=== PATIENT | female | born 1985 | race Caucasian/White ===

== ENCOUNTER 2022-08-05 20:19 | Observation (INO) ==
[2022-08-05] MEDS ORDERED: KETOROLAC TROMETHAMINE 15 MG/ML VIAL IM STA (21:05)
[2022-08-05] MEDS ORDERED: ONDANSETRON 4 MG OD TAB PO STA (21:05)
[2022-08-05 21:25] LABS: Basophils # (auto) 0.03 K/uL (0-0.2); Basophils % (auto) 0.3 %; Eosinophils # (auto) 0.01 K/uL (0-0.50); Eosinophils % (auto) 0.1 %; Hematocrit (blood only) 36.4 % (34.1-44.9); Hemoglobin 12.5 g/dl (12.0-16.0); Immature Granulocytes # (auto) 0.04 K/uL (0.00-0.02); Immature Granulocytes % (auto) 0.4 %; Lymphocytes # (auto) 1.48 K/uL (1.2-3.4); Lymphocytes % (auto) 14.3 %; Mean Corpuscular Hemoglobin 28.8 pg (25.0-34.0); Mean Corpuscular Hgb Conc 34.3 g/dL (32.0-36.0); Mean Corpuscular Volume 83.9 fL (80.0-100.0); Mean Platelet Volume 9.7 fL (9.4-12.3); Monocytes # (auto) 0.72 K/uL (0.24-0.82); Neutrophils # (auto) 8.05 K/uL (1.4-6.5); Neutrophils % (auto) 77.9 %; Platelet Count 247 K/uL (130-400); RDW Standard Deviation 43.3 fL (36.4-46.3); Red Blood Count 4.34 M/uL (3.93-5.22); White Blood Count 10.33 K/ul (4.8-10.8)
[2022-08-05 21:35] LABS: Appearance Urine Cloudy (Clear); Bacteria Urine Automated Negative (Negative); Bilirubin Urine Negative (Negative); Blood Urine 2+ (Negative); Color Urine Yellow; Epithelial Cell Urine Auto >30 /lpf (0-5); Glucose Urine UA 2+ (Negative); Ketones Urine Negative (Negative); Leukocyte Esterase Urine 1+ (Negative); Nitrite Urine Negative (Negative); Protein Urine 1+ (Negative); Urobilinogen Urine Negative (Negative); WBC Urine Automated >30 /hpf (0-5); pH Urine 5.5 (4.5-7.5)
[2022-08-05 21:40] LABS: Albumin Level 3.6 gm/dl (3.4-5.0); Anion Gap 7 (3-11); Bilirubin,Total 0.8 mg/dl (0.2-1.0); Calcium 8.5 mg/dl (8.5-10.1); Carbon Dioxide 28 mmol/L (21-32); Chloride 99 mmol/L (98-107); Potassium 3.8 mmol/L (3.5-5.1); Sodium 134 mmol/L (136-145)
[2022-08-05 21:46] LABS: Alanine Aminotransferase 32 U/L (7-52); Albumin Globulin Ratio 1.1 (0.9-2); Alkaline Phosphatase 75 U/L (34-104); Aspartate Aminotransferase 46 U/L (13-39); Blood Urea Nitrogen 18 mg/dl (6-23); Est GFR (African American) 116.4 ml/min; Est GFR (Non-African American) 100.4 ml/min; Globulin 3.4 gm/dl (2.5-4.0); Glucose 248 mg/dl (70-99(Fasting))
[2022-08-05] MEDS ORDERED: cefTRIAXone SODIUM 2,000 MG/70 ML BAG IV STA (22:10)
[2022-08-05] MEDS ORDERED: SODIUM CHLORIDE 0.9% 1000ML 1,000 ML IV ONE (22:10)
[2022-08-05 22:30] LABS: Pregnancy Test, Serum Negative (Negative)
--- NOTE | 2022-08-05 23:00 | Emergency Department Note ---
History of Present Illness General Chief complaint: Urinary Symptoms Stated complaint: KIDNEY AND URINARY INFECTION Time Seen by Provider: 08/05/22 21:55 History of Present Illness Maximum Pain Intensity: 10 This 37-year-old female that was seen in [facility] this morning diagnosed with pyelonephritis presents to the ER complaining of fever, nausea, vomiting and ongoing left flank left lower abdominal pain. Patient was placed on Levaquin. Patient states pain and symptoms got much worse. She continues to vomit. She is requesting admission. She brings in her results from [place]. Patient's had a cholecystectomy and appendectomy already. She states she is healthy no other medical problems. No drug allergies. Patient denies chest pain, dyspnea, cough, congestion. Home Medications Medication Instructions Recorded Confirmed Type albuterol sulfate 90 mcg/actuation 2 puff inhalation Q6H PRN 08/06/22 08/06/22 History aerosol inhaler Shortness Of Breath Or Wheezing hydrochlorothiazide 25 mg tablet 25 mg PO DAILY 08/06/22 08/06/22 History levofloxacin 750 mg tablet 750 mg PO DAILY 08/06/22 08/06/22 History lisinopril 20 mg tablet 30 mg PO DAILY 08/06/22 08/06/22 History metformin 500 mg tablet,extended 1,000 mg PO BID 08/06/22 08/06/22 History release 24 hr metoprolol succinate 100 mg 100 mg PO BID 08/06/22 08/06/22 History tablet,extended release 24 hr oxybutynin chloride 5 mg 5 mg PO DAILY 08/06/22 08/06/22 History tablet,extended release 24 hr rosuvastatin 10 mg tablet 10 mg PO DAILY 08/06/22 08/06/22 History sertraline 100 mg tablet 100 mg PO DAILY 08/06/22 08/06/22 History tizanidine 4 mg tablet 4 mg PO HS PRN Muscle Spasm 08/06/22 08/06/22 History Allergies Allergy/AdvReac Type Severity Reaction Status Date / Time No Known Allergies Allergy Unverified 08/05/22 21:03 Past Med/Surg History Social History Smoking Status: Current some day smoker Second Hand Exposure: No; Do You Dip or Chew Tobacco: No; Tobacco Cessation Education Requested by Patient: No Hx Alcohol Use: Yes Alcohol type: beer, wine and hard liquor Hx Substance Use: No Preferred Language: [place] Nursing Education Consultant Required: No Beliefs That Will Affect Care: None Current Living Situation: Spouse Other Information That Helps Us Care for You: No Feels Safe at Home: Yes Safety Concerns: Feels Safe At This Time Review of Systems A total of 10 systems reviewed and were otherwise negative Physical Exam Vital Signs Vital Signs - 24 hr 08/05/22 20:23 08/05/22 23:00 Temperature 36.9 C Temperature Source Temporal Artery Scan Pulse Rate 108 H Pulse Rate [Right Finger] 85 Pulse Rhythm [Right Finger] Regular Respiratory Rate 16 16 Respiratory Effort / Characteristics Non-Labored Spontaneous Non-Labored Respiratory Depth Normal Normal Blood Pressure 158/83 H Blood Pressure [Right Arm] 155/71 H Blood Pressure Mean 108 Blood Pressure Mean [Right Arm] 99 Pulse Oximetry 96 97 Oxygen Delivery Method Room Air Room Air Sepsis Recent Fever Within 48 Hours No Sepsis New/Unexplained Change in Mental Status N/A Sepsis Action Taken by Nursing No Action Required VITALS: Vitals are noted on the nurse's note and reviewed by myself. Vital signs mildly tachycardic. GENERAL: Pleasant female with partner present, in no acute distress, nondiaphoretic, well-developed well-nourished. SKIN: The skin was without rashes, erythema, edema, or bruising. There is no tenting of the skin. Capillary reflex less than 2 seconds. HEAD: Normocephalic atraumatic. EARS: External auditory canals clear, EYES: Pupils equal round and reactive to light and accommodation. Conjunctivae without injection, sclerae without icterus. Extraocular movements intact. NOSE: Patent, turbinates without inflammation or discharge. MOUTH: Mucous membranes moist. Pharynx without erythema or exudate. Uvula midline. Airway patent. Tongue does not deviate. NECK: Supple without nuchal rigidity. No lymphadenopathy. No thyromegaly. Cervical spine is nontender. No JVD. HEART: Regular rate and rhythm LUNGS: Clear to auscultation bilaterally without wheezes, rales or rhonchi. No retractions or accessory muscle use. ABDOMEN: Positive bowel sounds x 4. Normal tympanic percussion. Soft, tender left lower quadrant, without masses or organomegaly. Pope sign negative. No guarding or rebound tenderness. Left CVA tenderness MUSCULOSKELETAL: No muscle atrophy, erythema, or edema noted. NEURO: Patient was alert and oriented to person place and time. Normal sensation to light and sharp touch. No focal neurological deficits. Course Administered Medications Acetaminophen (Acetaminophen 325 Mg Tab) 650 mg PO Q4H PRN PRN Reason: pain/fever Stop: 09/05/22 00:33 Last Admin: 08/06/22 01:35 Dose: 650 mg Documented By: NMS Enoxaparin Sodium (Enoxaparin Inj 40 Mg/0.4 Ml Syr) 40 mg SQ HS ALISA Stop: 09/05/22 01:14 Last Admin: 08/06/22 01:36 Dose: 40 mg Documented By: NMS Sodium Chloride (Nss 1000ml) 1,000 mls @ 100 mls/hr IV .Q10H ALISA Stop: 08/06/22 20:59 Last Admin: 08/06/22 01:00 Dose: 100 mls/hr Documented By: STERLING Insulin Aspart (Insulin Aspart Per Unit) 0 units SC ACHS ALISA Stop: 09/05/22 01:14 Last Admin: 08/06/22 01:36 Dose: 4 units Documented By: STERLING Co-signed By: AB Insulin Glargine (Lantus Per Unit Charge) 10 units SQ BID ALISA Stop: 09/05/22 01:14 Last Admin: 08/06/22 01:36 Dose: 10 units Documented By: STERLING Co-signed By: AB Morphine Sulfate (Morphine Sulfate 2 Mg/Ml Carp) 2 mg IV Q4H PRN PRN Reason: Pain Stop: 08/20/22 00:33 Last Admin: 08/06/22 01:00 Dose: 2 mg Documented By: NMS Discontinued Medications Sodium Chloride (Nss 1000ml) 1,000 mls @ 999 mls/hr IV .Q1H1M ONE Stop: 08/05/22 23:10 Last Infusion: 08/05/22 23:27 Dose: 0 mls/hr Documented By: Admin: 08/05/22 22:34 Dose: 999 mls/hr Documented By: CICI Ceftriaxone Sodium (Rocephin) 2,000 mg in 70 mls @ 140 mls/hr IV NOW STA Stop: 08/05/22 22:39 Last Infusion: 08/05/22 23:05 Dose: 0 mls/hr Documented By: Admin: 08/05/22 22:34 Dose: 140 mls/hr Documented By: CICI Ketorolac Tromethamine (Ketorolac Tromethamine 15 Mg/Ml Vial) 15 mg IM NOW STA Stop: 08/05/22 21:06 Last Admin: 08/05/22 21:18 Dose: 15 mg Documented By: ISMAEL Ondansetron HCl (Ondansetron 4 Mg Od Tab) 4 mg PO NOW STA Stop: 08/05/22 21:06 Last Admin: 08/05/22 21:18 Dose: 4 mg Documented By: ISMAEL Zolpidem Tartrate (Zolpidem Tartrate 5 Mg Tab) 5 mg PO NOW STA Stop: 08/06/22 01:13 Last Admin: 08/06/22 01:35 Dose: 5 mg Documented By: STERLING Medical Decision Making Medical Records Attestation: I reviewed the patient's medical records. Home Medications Current Medication List: was personally reviewed by me Laboratory Data Attestation: I reviewed the patient's lab results. 08/05/22 21:12 08/05/22 21:12 Lab Results 08/05/22 08/05/22 08/05/22 Range/Units 21:12 21:12 21:12 WBC 10.33 (4.8-10.8) K/ul RBC 4.34 (3.93-5.22) M/uL Hgb 12.5 (12.0-16.0) g/dl Hct 36.4 (34.1-44.9) % MCV 83.9 (80.0-100.0) fL MCH 28.8 (25.0-34.0) pg MCHC 34.3 (32.0-36.0) g/dL RDW Std Deviation 43.3 (36.4-46.3) fL RDW Coeff of Edwin 14.0 (11.5-14.5) % Plt Count 247 (130-400) K/uL MPV 9.7 (9.4-12.3) fL Immature Gran % (Auto) 0.4 % Neut % (Auto) 77.9 % Lymph % (Auto) 14.3 % Crane % (Auto) 7.0 % Eos % (Auto) 0.1 % Baso % (Auto) 0.3 % Neut # (Auto) 8.05 H (1.4-6.5) K/uL Lymph # (Auto) 1.48 (1.2-3.4) K/uL Crane # (Auto) 0.72 (0.24-0.82) K/uL Eos # (Auto) 0.01 (0-0.50) K/uL Baso # (Auto) 0.03 (0-0.2) K/uL Immature Gran # (Auto) 0.04 H (0.00-0.02) K/uL Sodium 134 L (136-145) mmol/L Potassium 3.8 (3.5-5.1) mmol/L Chloride 99 (98-107) mmol/L Carbon Dioxide 28 (21-32) mmol/L Anion Gap 7 (3-11) BUN 18 (6-23) mg/dl Creatinine 0.75 (0.6-1.2) mg/dl Est Cr Clr Drug Dosing Not Reportable Est GFR ( Amer) 116.4 ml/min Est GFR (Non-Af Amer) 100.4 ml/min BUN/Creatinine Ratio 24.0 H (10-20) Glucose 248 H (70-99(Fasting)) mg/dl Lactate (0.4-2.0) mmol/L Calcium 8.5 (8.5-10.1) mg/dl Total Bilirubin 0.8 (0.2-1.0) mg/dl AST 46 H (13-39) U/L ALT 32 (7-52) U/L Alkaline Phosphatase 75 (34-104) U/L Total Protein 7.0 (6.0-8.3) gm/dl Albumin 3.6 (3.4-5.0) gm/dl Globulin 3.4 (2.5-4.0) gm/dl Albumin/Globulin Ratio 1.1 (0.9-2) HCG, Qual (Negative) Urine Color Yellow Urine Appearance Cloudy A (Clear) Urine pH 5.5 (4.5-7.5) Ur Specific [place] 1.020 (1.000-1.030) Urine Protein 1+ H (Negative) Urine Glucose (UA) 2+ H (Negative) Urine Ketones Negative (Negative) Urine Blood 2+ H (Negative) Urine Nitrite Negative (Negative) Urine Bilirubin Negative (Negative) Urine Urobilinogen Negative (Negative) Ur Leukocyte Esterase 1+ H (Negative) Urine WBC (Auto) >30 H (0-5) /hpf Urine RBC (Auto) 10-30 H (0-4) /hpf U Hyaline Cast (Auto) 1-5 (0-5) /lpf U Epithel Cells (Auto) >30 H (0-5) /lpf Urine Bacteria (Auto) Negative (Negative) SARS-CoV-2, RNA, NAAT (NEGATIVE) 08/05/22 08/05/22 08/05/22 Range/Units 21:12 22:32 22:32 WBC (4.8-10.8) K/ul RBC (3.93-5.22) M/uL Hgb (12.0-16.0) g/dl Hct (34.1-44.9) % MCV (80.0-100.0) fL MCH (25.0-34.0) pg MCHC (32.0-36.0) g/dL RDW Std Deviation (36.4-46.3) fL RDW Coeff of Edwin (11.5-14.5) % Plt Count (130-400) K/uL MPV (9.4-12.3) fL Immature Gran % (Auto) % Neut % (Auto) % Lymph % (Auto) % Crane % (Auto) % Eos % (Auto) % Baso % (Auto) % Neut # (Auto) (1.4-6.5) K/uL Lymph # (Auto) (1.2-3.4) K/uL Crane # (Auto) (0.24-0.82) K/uL Eos # (Auto) (0-0.50) K/uL Baso # (Auto) (0-0.2) K/uL Immature Gran # (Auto) (0.00-0.02) K/uL Sodium (136-145) mmol/L Potassium (3.5-5.1) mmol/L Chloride (98-107) mmol/L Carbon Dioxide (21-32) mmol/L Anion Gap (3-11) BUN (6-23) mg/dl Creatinine (0.6-1.2) mg/dl Est Cr Clr Drug Dosing Est GFR ( Amer) ml/min Est GFR (Non-Af Amer) ml/min BUN/Creatinine Ratio (10-20) Glucose (70-99(Fasting)) mg/dl Lactate 1.6 (0.4-2.0) mmol/L Calcium (8.5-10.1) mg/dl Total Bilirubin (0.2-1.0) mg/dl AST (13-39) U/L ALT (7-52) U/L Alkaline Phosphatase (34-104) U/L Total Protein (6.0-8.3) gm/dl Albumin (3.4-5.0) gm/dl Globulin (2.5-4.0) gm/dl Albumin/Globulin Ratio (0.9-2) HCG, Qual Negative (Negative) Urine Color Urine Appearance (Clear) Urine pH (4.5-7.5) Ur Specific [place] (1.000-1.030) Urine Protein (Negative) Urine Glucose (UA) (Negative) Urine Ketones (Negative) Urine Blood (Negative) Urine Nitrite (Negative) Urine Bilirubin (Negative) Urine Urobilinogen (Negative) Ur Leukocyte Esterase (Negative) Urine WBC (Auto) (0-5) /hpf Urine RBC (Auto) (0-4) /hpf U Hyaline Cast (Auto) (0-5) /lpf U Epithel Cells (Auto) (0-5) /lpf Urine Bacteria (Auto) (Negative) SARS-CoV-2, RNA, NAAT NEGATIVE (NEGATIVE) MDM Narrative Prior records/ancillary studies reviewed. Triage Nursing notes reviewed. Additional history obtained from family. I obtain the records from [place] and did review them. CAT scan was concerning for pyelonephritis. Patient was placed on Levaquin by the ER provider. The patient's history was concerning for abdominal pain. Differential diagnosis: Etiologies such as appendicitis, diverticulitis, PUD, biliary pathology, UTI, pancreatitis, obstruction, mesenteric ischemia, aortic pathology, infections, inflammatory bowel disease, renal colic, as well as others were entertained. Physical examination findings: As above. ER treatment provided: An order was placed for continuous cardiac monitoring. The monitor shows a rate of 60-1 50 with a sinus rhythm per my interpretation. Rocephin, IV fluids, Zofran, Toradol On reassessment the patient felt better. Diagnostics interpreted by me: The labs revealed urine concerning for infection and sent for culture. No prior urine culture review No worrisome leukocytosis, stable H&H Imaging studies: CT results from [place] were reviewed and concerning for pyelonephritis Consultation: A consultation was placed with the hospitalist. The case was discussed and diagnostics were reviewed. The patient was evaluated in the ER for further treatment. Exam and history seem consistent with pyelonephritis. Patient continues to vom it. Medicine was consulted and the case was discussed. She will be admitted to the medical team. Results will clear for were reviewed. There was concern requested. Patient is agreeable treatment plan of admission. By the evaluation outlined above emergent etiologies such as appendicitis, diverticulitis, PUD, biliary pathology, pancreatitis, obstruction, mesenteric ischemia, aortic pathology inflammatory bowel disease, renal colic, as well as others were deemed relatively unlikely. The pt informed about the findings as listed above. All questions were answered and pleased with the treatment. The chart was completed utilizing [employer] Speech voice recognition software. Grammatical errors, random word insertions, pronoun errors, and incomplete sentences are an occassional consequence of this system due to software limitations, ambient noise, and hardware issues. Any formal questions or concerns about the content, text, or information contained within the body of this dictation should be directly addressed to the physician ophthalmic assistant for clarification. Impression & Plan Pyelonephritis Discharge Plan Visit Data Chief Complaint: Urinary Symptoms Stated Complaint: KIDNEY AND URINARY INFECTION ED Provider: Alexandr Espinoza ED Midlevel Provider: Rose Marie Winters Discharge Problem: Pyelonephritis Patient Disposition: Admitted As Inpatient Condition: Good Discharge Instructions Interventions: ED Discharge Assessment Last Done: 08/06/22 00:21
[2022-08-06] MEDS ORDERED: tiZANidine HCL 4 MG TABLET PO PRN (00:34)
[2022-08-06] MEDS ORDERED: CARBOHYDRATES FOR HYPOGLYCEMIA PO PRN (00:34)
[2022-08-06] MEDS ORDERED: PHARMACY GLYCEMIC MGMT CONSULT PRN (00:34)
[2022-08-06] MEDS ORDERED: GLUCOSE 40% GEL 15 GM TUBE PO PRN (00:34)
[2022-08-06] MEDS ORDERED: POLYETHYLENE (MIRALAX) 17 GM PACK PO PRN (00:34)
[2022-08-06] MEDS ORDERED: GLUCAGON FOR INJ 1 MG VIAL SQ PRN (00:34)
[2022-08-06] MEDS ORDERED: DEXTROSE 50% 50 ML SYRINGE IV PRN (00:34)
[2022-08-06] MEDS ORDERED: GLUCOSE 10 TAB/TUBE PO PRN (00:34)
[2022-08-06] MEDS ORDERED: ALBUTEROL HFA 8 GM INHALER INH PRN (00:34)
[2022-08-06] MEDS ORDERED: ONDANSETRON INJ 2 MG/ML 2 ML VIAL IV PRN (00:34)
[2022-08-06] MEDS: MoRPHine SULFATE 2 MG/ML CARP IV PRN ×4 (01:00→20:26)
[2022-08-06] MEDS: SODIUM CHLORIDE 0.9% 1000ML 1,000 ML IV SCH ×2 (01:00→11:48)
[2022-08-06] MEDS ORDERED: ZOLPIDEM TARTRATE 5 MG TAB PO STA (01:12)
[2022-08-06] MEDS ORDERED: Nursing to Pharmacy Communication SCH (01:15)
[2022-08-06] MEDS: ACETAMINOPHEN 325 MG TAB PO PRN ×2 (01:35→15:29)
[2022-08-06] MEDS: INSULIN ASPART PER UNIT SC SCH ×5 (01:36→20:56)
[2022-08-06] MEDS: LANTUS PER UNIT CHARGE SQ SCH ×3 (01:36→20:56)
[2022-08-06] MEDS: ENOXAPARIN INJ 40 MG/0.4 ML SYR SQ SCH ×2 (01:36→20:33)
--- NOTE | 2022-08-06 07:47 | History and Physical Report ---
DATE OF ADMISSION: 08/05/2022. CHIEF COMPLAINT: Left flank pain, UTI, pyelonephritis. HISTORY OF PRESENT ILLNESS: This is a 37-year-old female with past medical history significant for type 2 diabetes on insulin pump, hyperlipidemia, mild intermittent asthma, hypertension, symptomatic PVCs, morbid obesity, patellofemoral syndrome of left knee, chronic neck pain, generalized anxiety disorder, presents with left flank pain. The patient states it is going on from the last Tuesday. She had cold like symptoms last Tuesday, that got better, but she is having left flank pain since last several days, that is not getting better, so she went to [facility] in the morning and was diagnosed with pyelonephritis and UTI. She was discharged on Levaquin, but the pain is not getting better. She had around 102 degrees of fever at home that is the reason, she came back. She was feeling chills, nausea or vomiting. She is not able to eat anything. Urine sample as outpatient showed some blood, but she did not see any blood by herself. Urine is dark. No burning micturition. Normal bowel movements. No chest pain, no shortness of breath, no cough, has headache about 5/10 severity. Vision is somewhat foggy because of dehydration, no earache. Has some runny nose and sore throat . Denies any cough. Currently, hemodynamically stable, resting comfortably. ALLERGIES: No known drug allergies. PAST MEDICAL HISTORY: As mentioned above. PAST SURGICAL HISTORY: Dental surgery, appendectomy, cholecystectomy. MEDICATIONS: The patient is on albuterol 2 puffs inhalation q. 6 hours p.r.n., hydrochlorothiazide 25 mg p.o. daily, Levaquin 75 mg p.o. b.i.d. for 7 days, lisinopril 20 mg p.o. daily, metformin 1000 mg p.o. b.i.d., metoprolol succinate 100 mg p.o. b.i.d., oxybutynin 5 mg p.o. daily, atorvastatin 10 mg p.o. daily, sertraline 100 mg p.o. daily, tizanidine 4 mg p.o. at bedtime p.r.n. FAMILY HISTORY: Significant for father had asthma, hypertension; mother has asthma, hypertension, thyroid disorder, sleep apnea, history of thyroid disorder; paternal aunt has breast cancer; paternal uncle has cancer; maternal grandmother has diabetes. SOCIAL HISTORY: , no smoking, alcohol rare, no drug use. REVIEW OF SYSTEMS: As per HPI. Rest of the review of systems is negative. PHYSICAL EXAMINATION: GENERAL: The patient is obese, not in acute distress. VITAL SIGNS: Temperature 37.1, pulse 84, respiratory rate 16, blood pressure 146/73, oxygen 97% on room air. HEENT: Pupils equal, round and reactive to light. Oral mucosa moist. NECK: No JVD. No neck masses. CARDIOVASCULAR: S1 and S2 heard. Regular rate and rhythm. No murmur, no gallop. RESPIRATORY SYSTEM: Normal AP diameter. No accessory muscle use. No wheezing, no crackles. ABDOMEN: Soft, bowel sounds present. Left CVA tenderness present. No guarding. No distention. CENTRAL NERVOUS SYSTEM: Cranial nerves II through XII grossly intact, nonfocal. EXTREMITIES: No edema, no erythema. LABORATORY DATA: WBC 10.3, hemoglobin 12.5, hematocrit 36.4, platelets 247. Sodium 134, potassium 3.8, chloride 99, bicarbonate 28, BUN 18, creatinine 0.7, serum glucose 248, lactate 1.6, calcium 8.5, total bilirubin 0.8, AST 46, ALT 32, alkaline phosphatase 75. HCG qualitative negative. Urinalysis, +1 protein, +2 glucose, +2 blood, +1 leukocyte esterase. SARS-CoV-2 rapid test negative. ASSESSMENT AND PLAN: This 37-year-old female presents with the left flank pain and nausea and vomiting and fevers was found to have left pyelonephritis and non obstructing stone on ct scan at [facility] in the morning and was discharged on levaquin but as symmptoms not getting bteer came to our ER.. 1. Leftsided pyelonephritis, left nephrolithiasis without obstruction on ct scan done at [facility] today morning. Was discharged on Levaquin, but the patientstill having significant pain, nausea, vomiting, chills and fever at home that is the reason came back here. Currently afebrile and hemodynamically stable. Lactate is 1.6. ER gave her Rocephin. We will continue Rocephin ,, clear liquid diet for now. We will place on IV fluids, IV pain meds p.r.n. . Follow the cultures. We will also follow renal ultrasound. Monitor in the medical floor. 2. History of diabetes. Hold metformin. Placed on insulin pump, which will be discontinued. The patient is okay for discontinuing it while in the hospital. Placed on the Lantus and insulin sliding scale. Consult Glycemic Pharmacy, follow HbA1c. We will follow the blood sugars. 3. History of hypertension, on lisinopril and hydrochlorothiazide and metoprolol. We will monitor the blood pressure. 4. History of anxiety disorder, on Zoloft. 5. History of symptomatic premature ventricular contractions, metoprolol succinate. 6. Hyperlipidemia, on statin. 7. Deep venous thrombosis prophylaxis: Lovenox. DISPOSITION: Closely monitor in the hospital. PT, OT prior to discharge. Social service to help with discharge planning. Level 1 full code. Job ID: [id number] MTDD
[2022-08-06] MEDS: hydroCHLOROthiazide 25 MG TAB PO SCH (08:40)
[2022-08-06] MEDS: ROSUVASTATIN CALCIUM 10 MG TAB PO SCH (08:40)
[2022-08-06] MEDS: lisinopril 10 MG TAB PO SCH (08:40)
[2022-08-06] MEDS: METOPROLOL SUCC 50MG EXT REL TAB PO SCH ×2 (08:40→20:33)
[2022-08-06] MEDS: SERTRALINE HCL 100 MG TABLET PO SCH (08:40)
[2022-08-06] MEDS: OXYBUTYNIN CHLORIDE XL 5 MG TABCR PO SCH (08:40)
[2022-08-06 09:22] LABS: Basophils # (auto) 0.03 K/uL (0-0.2); Basophils % (auto) 0.3 %; Eosinophils # (auto) 0.03 K/uL (0-0.50); Eosinophils % (auto) 0.3 %; Hemoglobin 11.4 g/dl (12.0-16.0); Immature Granulocytes # (auto) 0.02 K/uL (0.00-0.02); Immature Granulocytes % (auto) 0.2 %; Lymphocytes # (auto) 1.37 K/uL (1.2-3.4); Lymphocytes % (auto) 15.9 %; Mean Corpuscular Hgb Conc 34.5 g/dL (32.0-36.0); Mean Platelet Volume 10.2 fL (9.4-12.3); Monocytes % (auto) 8.1 %; Neutrophils # (auto) 6.48 K/uL (1.4-6.5); Neutrophils % (auto) 75.2 %; Platelet Count 226 K/uL (130-400); RDW Coefficient of Variation 13.9 % (11.5-14.5); RDW Standard Deviation 42.7 fL (36.4-46.3); Red Blood Count 3.93 M/uL (3.93-5.22); White Blood Count 8.63 K/ul (4.8-10.8)
[2022-08-06 09:34] LABS: BUN Creatinine Ratio 24.2 (10-20); Calcium 7.7 mg/dl (8.5-10.1); Creatinine Clr Calc Pharmacy 160.7 ml/min; Est GFR (African American) 131.6 ml/min; Est GFR (Non-African American) 113.6 ml/min; Magnesium 1.6 mg/dl (1.7-2.4); Potassium 3.5 mmol/L (3.5-5.1)
--- NOTE | 2022-08-06 10:24 | Pharmacy Report ---
Pharmacy Glycemic Short Note 2 - Date of Service August 06, 2022 - Glycemic Short BSG Results (Last 24 hours): 08/05/22 08/06/22 08/06/22 21:12 01:09 08:00 Glucose 248 H 200 H POC Glucose 227 H 08/06/22 08:05 Glucose POC Glucose 206 H OUTPATIENT ANTIDIABETIC REGIMEN: * metformin 1 gm bid, novolog insulin pump - basal rate 1.6 units/hr * A1c 7.9% ASSESSMENT: * 37 year old admitted with flank pain/nausea/vomiting/fevers - concerns for pyelonephritis - started on rocephin. Type 2 diabetic per notes. On metformin and novolog insulin pump at home. She reports she follows with [facility] for diabetes management. She just had an appt last Tuesday and her basal rate was decreased to 1.6 units/hr. She had previously been entering her carbs, however since this last visit they instructed her just to change the basal rate as concerns for BSGs dropping with decreased PO intake * She reports she lost about 14 lbs over the last week as she has not been eating/feel well. * Pharmacy consulted for glycemic management - patient reports feeling well today, eating breakfast/lunch. Will continue with SQ insulin for now until PO intake stable. Will base insulin doses off of a total daily outpatient dose of ~40 units/day. TDD of ~40 units is equivalent to basal 13 bid, CF 30, CR 10 - will plan to utilize similar parameters and start conservatively PLAN FOR INPATIENT GLYCEMIC CONTROL: * Hold outpatient oral diabetes medications * Basal insulin * Lantus 10 units SQ BID * Bolus insulin * NovoLog per scale ACHS or Q6hrs while NPO * Goal Range: Low 110 mg/dL - High 140 mg/dL * Correction Factor: 25 mg/dL/unit * Nutritional / Prandial insulin per carb ratio of 1 unit per 9 grams CHO consumed
[2022-08-06 11:37] LABS: Estimated Average Glucose 180 mg/dl; Hemoglobin A1C 7.9 % (4.5-5.6)
--- NOTE | 2022-08-06 13:14 | Ultrasound Report ---
US renal/blad retro comp CLINICAL HISTORY: PYELONEPHRITIS TECHNIQUE: Multiple sonographic real-time images of the kidneys and bladder were obtained. COMPARISON: None available at the time of this dictation. FINDINGS: The right kidney measures 13.8 cm in length, and the left kidney measures 13.9 cm in length. The right kidney is normal in size, contour, cortical thickness, and echogenicity. No hydronephrosis is identified. No renal lesion is identified. No perinephric fluid collection is seen. The left kidney is normal in size, contour, cortical thickness and echogenicity. No hydronephrosis i s identified. An echogenic focus in the left mid pole measures 7 mm, likely representing a nonobstruc tive stone. No perinephric fluid collection is seen. The bladder is partially distended. No large intraluminal mass is seen. IMPRESSION: No hydronephrosis. No abscess is seen. Of note, ultrasound is not a sensitive modality for evaluation of pyelonephritis ACT 112: Negative or not required by law. Electronically signed by: Edwin Delarosa M.D. 08/06/2022 1:13 PM
--- NOTE | 2022-08-06 13:37 | Hospitalist Progress Note ---
Date of Service August 06, 2022 Assessment & Plan (1) Pyelonephritis: Plan: Was seen by Field Specialist at [facility] on 07/28/22. Reported urgency and freq per EPIC note Started having left flank pain, nasuea, vomiting and fever At [facility], she was diagnosed with pyelonephritis and was discharged on levaquin However due to persistent symptoms she presented to [facility] ER Bladder USS did not show abscess or hydronephrosis UA had >30WBC, Leuk esterase +1 Continue ceftriaxone iV Follow up urine culture and blood cultures Pain control (2) Diabetes: Plan: A1c is 7.9 Holding home metformin Insulin per inpatient protocol (3) Hypertension: Plan: Continue home lisinopril, HCTZ H/o PVC. Continue metoprolol (4) Anxiety: Plan: Conitnue home zoloft Plan Hypomagnesemia Mag is 1.6 today. Start po mag Continue home statin DVT ppx- lovenox Code status - Full code Admission and Anticipated Discharge Date Admission Date: August 05, 2022 Subjective Patient seen and examined Reports severe left flank pain, not referred. Denied dysuria, freq, urgency, hematuria Denied fever, chills Denied nausea, vomiting, diarrhea, constipation Denied cough, shortness of breath, chest pain Physical Exam Constitutional: + well hydrated and + obese; no acute distress Eyes: PERRL, conjunctivae normal, anicteric sclerae ENMT: external ear and nose normal, oropharynx normal Respiratory: normal respiratory effort, lungs clear to auscultation Cardiovascular: Rate/Rhythm: regular rate and regular rhythm S1 S2 Gastrointestinal (Abdomen): Soft, not distended, left flank pain, normal bowel sounds Musculoskeletal: no cyanosis or clubbing, extremities motor strength 5/5 Neurologic: PERRL, EOMI, accommodation nl, no face palsy, no dysarthria Psychiatric: A+Ox3, euthymic affect Genitourinary: Left CVA tenderness Results & Data Results & Data ([facility]) Vital Signs (Past 12 Hours) Vital Signs Temp Pulse Pulse Resp BP Pulse Ox O2 Del Method 08/06/22 12:12 36.9 C 82 14 142/81 H 96 Room Air 08/06/22 08:06 37.1 C 84 19 148/80 H 92 Room Air 08/06/22 07:01 37.1 C 88 18 148/84 H 96 Room Air Laboratory Results Abnormal lab results 08/05/22 08/05/22 08/05/22 Range/Units 21:12 21:12 21:12 Hgb (12.0-16.0) g/dl Hct (34.1-44.9) % Neut # (Auto) 8.05 H (1.4-6.5) K/uL Immature Gran # (Auto) 0.04 H (0.00-0.02) K/uL Sodium 134 L (136-145) mmol/L BUN/Creatinine Ratio 24.0 H (10-20) Glucose 248 H (70-99(Fasting)) mg/dl POC Glucose (70-99) mg/dl Hemoglobin A1c (4.5-5.6) % Calcium (8.5-10.1) mg/dl Magnesium (1.7-2.4) mg/dl AST 46 H (13-39) U/L Urine Appearance Cloudy A (Clear) Urine Protein 1+ H (Negative) Urine Glucose (UA) 2+ H (Negative) Urine Blood 2+ H (Negative) Ur Leukocyte Esterase 1+ H (Negative) Urine WBC (Auto) >30 H (0-5) /hpf Urine RBC (Auto) 10-30 H (0-4) /hpf U Epithel Cells (Auto) >30 H (0-5) /lpf 08/06/22 08/06/22 08/06/22 Range/Units 01:09 08:00 08:00 Hgb 11.4 L (12.0-16.0) g/dl Hct 33.0 L (34.1-44.9) % Neut # (Auto) (1.4-6.5) K/uL Immature Gran # (Auto) (0.00-0.02) K/uL Sodium (136-145) mmol/L BUN/Creatinine Ratio 24.2 H (10-20) Glucose 200 H (70-99(Fasting)) mg/dl POC Glucose 227 H (70-99) mg/dl Hemoglobin A1c (4.5-5.6) % Calcium 7.7 L (8.5-10.1) mg/dl Magnesium 1.6 L (1.7-2.4) mg/dl AST (13-39) U/L Urine Appearance (Clear) Urine Protein (Negative) Urine Glucose (UA) (Negative) Urine Blood (Negative) Ur Leukocyte Esterase (Negative) Urine WBC (Auto) (0-5) /hpf Urine RBC (Auto) (0-4) /hpf U Epithel Cells (Auto) (0-5) /lpf 08/06/22 08/06/22 08/06/22 Range/Units 08:00 08:05 12:08 Hgb (12.0-16.0) g/dl Hct (34.1-44.9) % Neut # (Auto) (1.4-6.5) K/uL Immature Gran # (Auto) (0.00-0.02) K/uL Sodium (136-145) mmol/L BUN/Creatinine Ratio (10-20) Glucose (70-99(Fasting)) mg/dl POC Glucose 206 H 183 H (70-99) mg/dl Hemoglobin A1c 7.9 H (4.5-5.6) % Calcium (8.5-10.1) mg/dl Magnesium (1.7-2.4) mg/dl AST (13-39) U/L Urine Appearance (Clear) Urine Protein (Negative) Urine Glucose (UA) (Negative) Urine Blood (Negative) Ur Leukocyte Esterase (Negative) Urine WBC (Auto) (0-5) /hpf Urine RBC (Auto) (0-4) /hpf U Epithel Cells (Auto) (0-5) /lpf
[2022-08-06] MEDS: MAGNESIUM OXIDE 400 MG TAB PO SCH (15:29)
[2022-08-06] MEDS: cefTRIAXone SODIUM 2,000 MG in DEXTROSE 5% 50 ML IV SCH (20:52)
[2022-08-06] MEDS ORDERED: KETOROLAC 30 MG/ML VIAL IV ONE (23:19)
[2022-08-06] MEDS ORDERED: PHENAZOPYRIDINE HCL 200 MG TAB PO PRN (23:20)
[2022-08-07 05:53] LABS: Hematocrit (blood only) 33.6 % (34.1-44.9); Hemoglobin 11.6 g/dl (12.0-16.0); Mean Corpuscular Hemoglobin 28.9 pg (25.0-34.0); Mean Corpuscular Hgb Conc 34.5 g/dL (32.0-36.0); Mean Corpuscular Volume 83.8 fL (80.0-100.0); Mean Platelet Volume 9.7 fL (9.4-12.3); Platelet Count 232 K/uL (130-400); RDW Coefficient of Variation 13.5 % (11.5-14.5); RDW Standard Deviation 41.3 fL (36.4-46.3); Red Blood Count 4.01 M/uL (3.93-5.22)
[2022-08-07 06:14] LABS: Calcium 8.1 mg/dl (8.5-10.1); Magnesium 1.6 mg/dl (1.7-2.4); Potassium 3.5 mmol/L (3.5-5.1)
[2022-08-07 06:19] LABS: Est GFR (African American) 133.1 ml/min; Est GFR (Non-African American) 114.8 ml/min; Phosphorus 2.5 mg/dl (2.5-4.9)
[2022-08-07] MEDS: ACETAMINOPHEN 325 MG TAB PO PRN ×2 (08:21→15:11)
[2022-08-07] MEDS: MAGNESIUM OXIDE 400 MG TAB PO SCH (08:22)
[2022-08-07] MEDS: OXYBUTYNIN CHLORIDE XL 5 MG TABCR PO SCH (08:22)
[2022-08-07] MEDS: ROSUVASTATIN CALCIUM 10 MG TAB PO SCH (08:23)
[2022-08-07] MEDS: hydroCHLOROthiazide 25 MG TAB PO SCH (08:23)
[2022-08-07] MEDS: lisinopril 10 MG TAB PO SCH (08:23)
[2022-08-07] MEDS: SERTRALINE HCL 100 MG TABLET PO SCH (08:23)
[2022-08-07] MEDS ORDERED: MAGNESIUM SULFATE / D5W 1 GM/100 ML BAG IV ONE (09:00)
[2022-08-07] MEDS ORDERED: LANTUS PER UNIT CHARGE SQ ONE (09:00)
[2022-08-07] MEDS: INSULIN ASPART PER UNIT SC SCH ×4 (09:04→20:43)
[2022-08-07] MEDS: METOPROLOL SUCC 50MG EXT REL TAB PO SCH ×2 (09:39→20:47)
--- NOTE | 2022-08-07 13:46 | Pharmacy Report ---
Pharmacy Glycemic Short Note 2 - Date of Service August 07, 2022 - Glycemic Short BSG Results (Last 24 hours): 08/06/22 08/06/22 08/07/22 17:25 20:10 05:18 Glucose 217 H POC Glucose 248 H 191 H 08/07/22 08/07/22 08:17 12:18 Glucose POC Glucose 184 H 193 H OUTPATIENT ANTIDIABETIC REGIMEN: * metformin 1 gm bid, novolog insulin pump - basal rate 1.6 units/hr HbA1c 7.9% (08/06/22) ASSESSMENT: 08/07/22: * Hyperglycemia noted yesterday, BSGs ranging 183-248 mg/dL * Plan to tighten Novolog parameters today * Received 47 units of insulin (20 units of basal and 27 units of prandial/correctional bolus) * Fasting BSG of 184 mg/dL this morning - plan to increase basal insulin today * Remains on ceftriaxone for pyelonephritis 08/06/22: * 37 year old admitted with flank pain/nausea/vomiting/fevers - concerns for pyelonephritis - started on rocephin. Type 2 diabetic per notes. On metformin and novolog insulin pump at home. She reports she follows with Lennox rand for diabetes management. She just had an appt last Tuesday and her basal rate was decreased to 1.6 units/hr. She had previously been entering her carbs, however since this last visit they instructed her just to change the basal rate as concerns for BSGs dropping with decreased PO intake * She reports she lost about 14 lbs over the last week as she has not been eating/feel well. * Pharmacy consulted for glycemic management - patient reports feeling well today, eating breakfast/lunch. Will continue with SQ insulin for now until PO intake stable. Will base insulin doses off of a total daily outpatient dose of ~40 units/day. TDD of ~40 units is equivalent to basal 13 bid, CF 30, CR 10 - will plan to utilize similar parameters and start conservatively PLAN FOR INPATIENT GLYCEMIC CONTROL: * Hold outpatient oral diabetes medications * Basal insulin * Lantus 20 units SC qAM * Lanuts 0-10 units SC HS (see EHR for details) * Bolus insulin * NovoLog per scale ACHS or Q6hrs while NPO * Goal Range: Low 110 mg/dL - High 140 mg/dL * Correction Factor: 20 mg/dL/unit * Nutritional / Prandial insulin per carb ratio of 1 unit per 6 grams CHO consumed
--- NOTE | 2022-08-07 14:37 | Hospitalist Progress Note ---
Date of Service August 07, 2022 Assessment & Plan (1) Pyelonephritis: Plan: Was seen by Stre[employer] And Buildings Decorator at [facility] on 07/28/22. Reported urgency and freq per EPIC note Started having left flank pain, nasuea, vomiting and fever At [facility], she was diagnosed with pyelonephritis and was discharged on levaquin However due to persistent symptoms she presented to [facility] ER Renal USS did not show abscess or hydronephrosis UA had >30WBC, Leuk esterase +1 Continue ceftriaxone IV Urine culture - multiple org, likely katie Blood cultures negative 24h Will continue IV ceftriaxone till tomorrow. If remains stable and blood culture remains negative tomorrow, plan transition to po and discharge Pain controlled. Stop morphine. Continue prn tylenol (2) Diabetes: Plan: A1c is 7.9 Holding home metformin Insulin per inpatient protocol (3) Hypertension: Plan: Continue home lisinopril, HCTZ H/o PVC. Continue metoprolol (4) Anxiety: Plan: Conitnue home zoloft Plan Hypomagnesemia Mag is 1.6 today. Replete Continue po mag. Continue home statin DVT ppx- lovenox Code status - Full code Admission and Anticipated Discharge Date Admission Date: August 05, 2022 Subjective Patient seen and examined Reports left flank pain is significantly improved Denied dysuria, freq, urgency, hematuria Denied fever, chills Denied nausea, vomiting, diarrhea, constipation Denied cough, shortness of breath, chest pain Physical Exam Constitutional: + well hydrated and + obese; no acute distress Eyes: PERRL, conjunctivae normal, anicteric sclerae ENMT: external ear and nose normal, oropharynx normal Respiratory: normal respiratory effort, lungs clear to auscultation Cardiovascular: Rate/Rhythm: regular rate and regular rhythm S1 S2 Gastrointestinal (Abdomen): normal bowel sounds, soft, nontender, no hep atosplenomegaly Musculoskeletal: no cyanosis or clubbing, extremities motor strength 5/5 Neurologic: PERRL, EOMI, accommodation nl, no face palsy, no dysarthria Psychiatric: A+Ox3, euthymic affect Genitourinary: +Left CVA tenderness Results & Data Results & Data ([facility]) Vital Signs (Past 12 Hours) Vital Signs Temp Pulse Resp BP Pulse Ox O2 Del Method 08/07/22 07:35 37.0 C 71 14 157/85 H 95 Room Air Laboratory Results Abnormal lab results 08/06/22 08/06/22 08/07/22 Range/Units 17:25 20:10 05:18 Hgb 11.6 L (12.0-16.0) g/dl Hct 33.6 L (34.1-44.9) % Sodium (136-145) mmol/L Glucose (70-99(Fasting)) mg/dl POC Glucose 248 H 191 H (70-99) mg/dl Calcium (8.5-10.1) mg/dl Magnesium (1.7-2.4) mg/dl 08/07/22 08/07/22 08/07/22 Range/Units 05:18 08:17 12:18 Hgb (12.0-16.0) g/dl Hct (34.1-44.9) % Sodium 135 L (136-145) mmol/L Glucose 217 H (70-99(Fasting)) mg/dl POC Glucose 184 H 193 H (70-99) mg/dl Calcium 8.1 L (8.5-10.1) mg/dl Magnesium 1.6 L (1.7-2.4) mg/dl
[2022-08-07] MEDS ORDERED: KETOROLAC TROMETHAMINE 15 MG/ML VIAL IV PRN (16:38)
[2022-08-07] MEDS: KETOROLAC TROMETHAMINE 15 MG/ML VIAL IV SCH ×2 (17:02→22:07)
--- NOTE | 2022-08-07 17:10 | XRay Report ---
XR cervical [id number] routine CLINICAL HISTORY: Neck pain TECHNIQUE: AP, lateral, bilateral oblique, and open-jaw images of the cervical spine were obtained. COMPARISON: None available at the time of this dictation. FINDINGS: No fractures or subluxations are identified. Degenerative changes are noted in the cervical spine wit h neuroforaminal narrowing at C3-C4.. The alignment is anatomic. Prevertebral soft tissues are within normal limits. IMPRESSION: Degenerative changes without evidence of acute abnormality. ACT 112: Negative or not required by law. Electronically signed by: Edwin Delarosa M.D. 08/07/2022 5:09 PM
[2022-08-07] MEDS: ENOXAPARIN INJ 40 MG/0.4 ML SYR SQ SCH (20:47)
[2022-08-07] MEDS: cefTRIAXone SODIUM 2,000 MG in DEXTROSE 5% 50 ML IV SCH (20:52)
[2022-08-07] MEDS ORDERED: LANTUS PER UNIT CHARGE SQ SCH (21:00)
[2022-08-08 05:42] LABS: Hematocrit (blood only) 34.5 % (34.1-44.9); Mean Corpuscular Hemoglobin 28.9 pg (25.0-34.0); Mean Corpuscular Hgb Conc 34.8 g/dL (32.0-36.0); Mean Corpuscular Volume 83.1 fL (80.0-100.0); Mean Platelet Volume 9.9 fL (9.4-12.3); Platelet Count 325 K/uL (130-400); RDW Coefficient of Variation 13.2 % (11.5-14.5); RDW Standard Deviation 39.9 fL (36.4-46.3); Red Blood Count 4.15 M/uL (3.93-5.22); White Blood Count 9.42 K/ul (4.8-10.8)
[2022-08-08] MEDS: KETOROLAC TROMETHAMINE 15 MG/ML VIAL IV SCH ×2 (05:49→10:19)
[2022-08-08 06:36] LABS: BUN Creatinine Ratio 31.7 (10-20); Calcium 8.9 mg/dl (8.5-10.1); Creatinine Clr Calc Pharmacy 158.1 ml/min; Magnesium 1.8 mg/dl (1.7-2.4); Phosphorus 3.6 mg/dl (2.5-4.9); Potassium 3.6 mmol/L (3.5-5.1)
[2022-08-08] MEDS: METOPROLOL SUCC 50MG EXT REL TAB PO SCH (08:12)
[2022-08-08] MEDS: SERTRALINE HCL 100 MG TABLET PO SCH (08:12)
[2022-08-08] MEDS: lisinopril 10 MG TAB PO SCH (08:13)
[2022-08-08] MEDS: MAGNESIUM OXIDE 400 MG TAB PO SCH (08:13)
[2022-08-08] MEDS: hydroCHLOROthiazide 25 MG TAB PO SCH (08:13)
[2022-08-08] MEDS: OXYBUTYNIN CHLORIDE XL 5 MG TABCR PO SCH (08:13)
[2022-08-08] MEDS: ROSUVASTATIN CALCIUM 10 MG TAB PO SCH (08:14)
[2022-08-08] MEDS: INSULIN ASPART PER UNIT SC SCH (08:45)
[2022-08-08] MEDS ORDERED: LANTUS PER UNIT CHARGE SQ SCH (09:00)
--- NOTE | 2022-08-08 11:29 | Discharge Summary ---
Discharge Summary Date of Service August 08, 2022 Notes For Next Care Provider Follow up recovery Medication Changes From Visit Discharged on cefdinir to complete 10 days treatment Admission HPI Per Admitting Provider This is a 37-year-old female with past medical history significant for type 2 diabetes on insulin pump, hyperlipidemia, mild intermittent asthma, hypertension, symptomatic PVCs, morbid obesity, patellofemoral syndrome of left knee, chronic neck pain, generalized anxiety disorder, presents with left flank pain. The patient states it is going on from the last Tuesday. She had cold like symptoms last Tuesday, that got better, but she is having left flank pain since last several days, that is not getting better, so she went to [facility] in the morning and was diagnosed with pyelonephritis and UTI. She was discharged on Levaquin, but the pain is not getting better. She had around 102 degrees of fever at home that is the reason, she came back. She was feeling chills, nausea or vomiting. She is not able to eat anything. Urine sample as outpatient showed some blood, but she did not see any blood by herself. Urine is dark. No burning micturition. Normal bowel movements. No chest pain, no shortness of breath, no cough, has headache about 5/10 severity. Vision is somewhat foggy because of dehydration, no earache. Has some runny nose and sore throat . Denies any cough. Currently, hemodynamically stable, resting comfortably. Admission Exam Per Admitting Provider GENERAL: The patient is obese, not in acute distress. VITAL SIGNS: Temperature 37.1, pulse 84, respiratory rate 16, blood pressure 146/73, oxygen 97% on room air. HEENT: Pupils equal, round and reactive to light. Oral mucosa moist. NECK: No JVD. No neck masses. CARDIOVASCULAR: S1 and S2 heard. Regular rate and rhythm. No murmur, no gallop. RESPIRATORY SYSTEM: Normal AP diameter. No accessory muscle use. No wheezing, no crackles. ABDOMEN: Soft, bowel sounds present. Left CVA tenderness present. No guarding. No distention. CENTRAL NERVOUS SYSTEM: Cranial nerves II through XII grossly intact, nonfocal. EXTREMITIES: No edema, no erythema. Principal Dx & Hospital Course #1 = Principal Diagnosis (1) Pyelonephritis: Was seen by Mold Closer Helper at [facility] on 07/28/22. Reported urgency and freq per EPIC note Started having left flank pain, nasuea, vomiting and fever At [facility], she was diagnosed with pyelonephritis and was discharged on levaquin However due to persistent symptoms she presented to [facility] ER Renal USS did not show abscess or hydronephrosis UA had >30WBC, Leuk esterase +1 Was treated with IV ceftriaxone inpatient Urine culture - multiple org, likely contaminated Blood cultures negative Symptoms resolved Patient discharged on po cefdinir to complete 10 day therapy (2) Diabetes: A1c is 7.9 Continue home metformin (3) Hypertension: Continue home lisinopril, HCTZ H/o PVC. Continue metoprolol (4) Anxiety: Conitnue home zoloft Discharge Exam Constitutional + well hydrated and + obese; no acute distress Eyes PERRL, conjunctivae normal, anicteric sclerae ENMT external ear and nose normal, oropharynx normal Respiratory normal respiratory effort, lungs clear to auscultation Cardiovascular Rate/Rhythm: regular rate and regular rhythm S1 S2 Gastrointestinal (Abdomen) normal bowel sounds, soft, nontender, no hepatosplenomegaly Musculoskeletal no cyanosis or clubbing, extremities motor strength 5/5 Neurologic PERRL, EOMI, accommodation nl, no face palsy, no dysarthria Psychiatric A+Ox3, euthymic affect Updated Medication List Medication Instructions Recorded Confirmed Type albuterol sulfate 90 mcg/actuation 2 puff inhalation Q6H PRN 08/06/22 08/06/22 History aerosol inhaler Shortness Of Breath Or Wheezing hydrochlorothiazide 25 mg tablet 25 mg PO DAILY 08/06/22 08/06/22 History insulin aspart U-100 100 unit/mL 08/06/22 History subcutaneous solution (Novolog U-100 Insulin aspart) lisinopril 20 mg tablet 30 mg PO DAILY 08/06/22 08/06/22 History metformin 500 mg tablet,extended 1,000 mg PO BID 08/06/22 08/06/22 History release 24 hr metoprolol succinate 100 mg 100 mg PO BID 08/06/22 08/06/22 History tablet,extended release 24 hr oxybutynin chloride 5 mg 5 mg PO DAILY 08/06/22 08/06/22 History tablet,extended release 24 hr rosuvastatin 10 mg tablet 10 mg PO DAILY 08/06/22 08/06/22 History sertraline 100 mg tablet 100 mg PO DAILY 08/06/22 08/06/22 History tizanidine 4 mg tablet 4 mg PO HS PRN Muscle Spasm 08/06/22 08/06/22 History cefdinir 300 mg capsule 300 mg PO BID 8 days #16 caps 08/08/22 Rx Hospital Stay Data Consultations 08/05/22 22:51 ED Decision to Admit Stat Diagnostic Imagining Performed 08/06/22 00:34 US renal/blad retro comp Routine Pending Results Patient Have Any Pending Studies at Discharge: No Discharge Instructions Given to Patient (Per Discharging Provider) Mrs Cabrera You came to the hospital with worsening flank pain and fever at home, after initial presentation to [facility]. You were managed for acute pyelonephritis with IV antibiotics. Your symptoms resolved. You are being discharged home on oral antibiotics to complete treatment. Stop the levofloxacin you were on prior to coming to the hospital Please ensure follow up with your Primary Doctor It was a pleasure taking care of you. Total Time Total Time Spent Total Time Spent (In Minutes): 50 Total Time Includes: Examination of the Patient, Discharge Planning and Medication Reconciliation
[2022-08-08] MEDS ORDERED: KETOROLAC TROMETHAMINE 15 MG/ML VIAL IV ONE (11:49)
== END 2022-08-08 12:28 | disposition home or self-care (01) ==
LOC: ED 20:19 → INTOOBSV 23:50 → 3W 23:50 → 3E 08-06 18:10